=== PATIENT | female | born 1990 | race Caucasian/White ===

== ENCOUNTER 2019-01-25 08:09 | Outpatient (CLI) | payer OTHER, SELFPAY ==
--- NOTE | 2019-01-25 09:22 | ULT ---
LEFT BREAST ULTRASOUND: HISTORY: Palpable left axillary mass and bloody discharge from the left nipple. FINDINGS: Sonographic evaluation in the region of palpable concern in the left axilla demonstrates a 1.2 x 0.3 cm, irregular, hypoechoic lesion in the skin, of uncertain etiology. No mass or abnormal ductal dilatation is seen in the retroareolar region of the left breast. POS: OFF
== END 2019-01-25 08:10 | disposition home or self-care (01) ==
LOC: BICULT 08:09
DX: N63.20 Unspecified lump in the left breast, unspecified quadrant (principal); N64.52 Nipple discharge